=== PATIENT | female | born 1995 | race Caucasian/White ===

== ENCOUNTER 2016-11-14 18:06 | Emergency (ER) | payer OTHER ==
[~2016-11-14] VITALS: Ht 160 cm; Wt 59.0 kg
[2016-11-14 18:10] VITALS: BP 143/83
[2016-11-14] MEDS ORDERED: SUMATRIPTAN SUCCINATE 6 MG/0.5 ML VIAL SQ ONE ×2 (18:44→19:00)
[2016-11-14] MEDS ORDERED: ONDANSETRON 4 MG TAB.RAPDIS ONE (19:05)
[2016-11-14] MEDS ORDERED: ONDANSETRON 4 MG TAB.RAPDIS SL ONE (19:30)
== END 2016-11-14 19:14 | disposition home or self-care (01) ==
LOC: ER 18:08
DX: G43.909 Migraine, unspecified, not intractable, without status migrainosus (principal)
CPT/HCPCS: A4606; J3030; Q0162; Z7610